=== PATIENT | male | born 1975 | race Caucasian/White ===

== ENCOUNTER 2020-02-08 13:47 | Emergency (ER) | payer MEDICAID, OTHER, SELFPAY ==
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
--- NOTE | 2020-02-08 15:05 | CR ---
INDICATION: Left lateral foot pain. TECHNIQUE: X-ray left foot, two views COMPARISON: None available. FINDINGS: The alignment is normal. The joint spaces are preserved. There is mild irregularity at the base of the proximal 5th phalanx. Otherwise negative for acute fracture. The overlying soft tissues unremarkable. No radiopaque foreign body is seen. IMPRESSION: Irregularity at the base of the proximal 5th phalanx, could represent a nondisplaced fracture. Recommend correlation with point tenderness. Dictated by Erica Chávez MD @ Feb 08 2020 3:02PM Signed by Dr. Erica Chávez @ Feb 08 2020 3:02PM
== END 2020-02-08 15:34 | disposition home or self-care (01) ==
LOC: MW.ED 13:47
DX: S92.515A Nondisplaced fracture of proximal phalanx of left lesser toe(s), initial encounter for closed fracture (principal); F17.210 Nicotine dependence, cigarettes, uncomplicated; Z91.030 Bee allergy status; Z88.3 Allergy status to other anti-infective agents; V49.40XA Driver injured in collision with unspecified motor vehicles in traffic accident, initial encounter
CPT/HCPCS: 73620-26-LT; 73620-LT; 99283; 99284-25